=== PATIENT | female | born 1940 | race Caucasian/White ===

== ENCOUNTER 2017-01-30 10:03 | Emergency (ER) | payer MEDICARE, OTHER ==
[~2017-01-30] VITALS: Ht 162.6 cm; Wt 61.1 kg
[2017-01-30 10:07] VITALS: BP 133/76; PULSE 82; RESP 16; TEMP 98.3; O2SAT 98
--- NOTE | 2017-01-30 10:26 | PD ---
HPI Chief Complaint: Musculoskeletal Complaint Time Seen by Provider: 10:13 Travel History International Travel<30 days: No Contact w/Intl Traveler<30days: No Traveled to known affect area: No History of Present Illness HPI The patient was seen and examined in the presence of the nurse. This patient has a swollen painful area on her mid left thigh and wanted to make sure she did not have a blood clot. She has no history of DVT. No injury. No fever. Symptoms severity is mild PFSH Social History Alcohol Use: No Tobacco Use: No Substance Use: No Allergies-Medications (Allergen,Severity, Reaction): Coded Allergies: Sulfa (Verified Allergy, Unknown, 01/30/17) Review of Systems General / Constitutional: No: Fever HENT: No: Headaches, Vertigo Respiratory: No: Cough Gastrointestinal: No: Abdominal Pain Physical Exam Narrative SKIN: Focused skin assessment reveals no rash or ulcers. Skin is warm and dry. Palpation shows no induration or nodules. Psych: Normal mood and affect. Normal insight and judgment. Left leg: Neurovascular intact with good pedal pulses. There is a vague fullness in the mid quadriceps mildly tender but not fluctuant or red or warm. Data Data Last Documented VS Vital Signs Date Time Temp Pulse Resp B/P Pulse Ox O2 Delivery O2 Flow Rate FiO2 01/30/17 10:07 98.3 82 16 133/76 98 MDM Medical Decision Making Medical Screen Exam Complete: Yes Emergency Medical Condition: Yes Medical Record Reviewed: Yes Differential Diagnosis Lipoma, quadriceps injury, myalgia Narrative Course I have reviewed the patient's electronic medical record. Not sure exactly what this vague mid left quadriceps fullness represents but it is clearly not a DVT No evidence of infection Stable for outpatient family physician follow-up Diagnosis Primary Impression: Musculoskeletal pain of left thigh Additional Instructions: The patient was advised to follow up with their physician and return if they worsen. Med/Other Pt SpecificInfo: Other Disposition: 01 DISCHARGE HOME Condition: Stable Xavier Chery MD Jan 30, 2017 10:26
[2017-01-30] MEDS ORDERED: ZOLM2.5T PO (10:32)
[2017-01-30] MEDS ORDERED: ESTR0.5T3 PO (10:32)
[2017-01-30] MEDS ORDERED: LEVO.05 PO (10:32)
[2017-01-30] MEDS ORDERED: ROSU5 PO (10:33)
== END 2017-01-30 10:50 | disposition home or self-care (01) ==
LOC: PHED 10:03
DX: M79.652 Pain in left thigh (principal)
CPT/HCPCS: 99281